=== PATIENT | female | born 1935 | race Caucasian/White ===

== ENCOUNTER 2018-10-11 07:47 | Day surgery (SDC) | payer OTHER ==
[~2018-10-11 07:47] MED LIST: CEREFOLIN CAPL1 EACH PO; CYMBALTA20 MG PO; FOLIC ACID1 MG PO; LIPITOR20 MG PO; NAMENDA5 MG PO; NEURO; PROTONIX20 MG PO; [UNRECOGNIZED DRUG - OTHER] PO
== END 2018-10-11 17:15 | disposition home or self-care (01) ==
LOC: CIR.AMB 07:47
DX: G57.72 Causalgia of left lower limb (principal)

== ENCOUNTER 2022-09-30 15:54 | Inpatient (IN) | payer OTHER ==
[~2022-09-30] VITALS: Ht 160 cm; Wt 72.6 kg
--- NOTE | 2022-09-30 16:01 | NUR ---
PTE ALERTA,ESTABLE Y ACOMPANADA DEL FAMILIAR CUAL REFIERE QUE DESDE ASHA COMENZO CON LA DEBILIDAD Y SIN APETITOS.
[2022-09-30] MEDS ORDERED: RAZADYNE ER16 MG (16:14)
[2022-09-30] MEDS ORDERED: VITAMINA B12 (16:15)
[2022-09-30] MEDS ORDERED: CYMBALTA20 MG (16:15)
[2022-09-30] MEDS ORDERED: FOLIC ACID1 MG (16:15)
[2022-09-30] MEDS ORDERED: NAMENDA XR28 MG (16:15)
[2022-09-30] MEDS ORDERED: LIPITOR40 M1 (16:15)
[2022-09-30] MEDS ORDERED: OSTERA TABLET1 EACH (16:15)
[2022-09-30] MEDS ORDERED: NEURONTIN300 MG (16:16)
[2022-09-30] MEDS ORDERED: INTEGRA F CAPS1 EACH (16:16)
[2022-09-30] MEDS ORDERED: TYLENOL ARTHRI650 MG (16:16)
[2022-09-30] MEDS ORDERED: PEPCID20 MG (16:16)
[2022-09-30] MEDS ORDERED: [UNRECOGNIZED DRUG - OTHER] (16:16)
[2022-09-30] MEDS ORDERED: ELIQUIS5 MG (16:16)
--- NOTE | 2022-09-30 17:57 | NUR ---
EVALUA PACIENTE SE ORIENTA SOBRE TRATAMIENTO MEDICO PACIENTE REFIRERE ENTENDER SE REALIZAN MUESTRAS DE LABORATORIO BAJO MEDIDAS ASPECTICAS SE COORDINA CT PACIENTE MANEJADA .
[2022-10-02] MEDS ORDERED: LATANOPROST2.5 ML (11:37)
== END 2022-10-07 18:04 | disposition home or self-care (01) | DRG 177 ==
LOC: ER 15:54 → MEDJ 23:01 → SURH 23:01 → MEDJ 10-01 14:41
PROVIDERS: ADMIT Specialist; ATTEND Specialist
PROC: B345ZZZ Ultrasonography of Bilateral Common Carotid Arteries (ICD-10-PCS; 2022-09-30)
PROC: B348ZZZ Ultrasonography of Bilateral Internal Carotid Arteries (ICD-10-PCS; 2022-09-30)
PROC: B020ZZZ Computerized Tomography (CT Scan) of Brain (ICD-10-PCS; 2022-09-30)
PROC: 8E0ZXY6 Isolation (ICD-10-PCS; principal; 2022-10-01)
PROC: XW033E5 Introduction of Remdesivir Anti-infective into Peripheral Vein, Percutaneous Approach, New Technology Group 5 (ICD-10-PCS; 2022-10-01)
PROC: 4A12X4Z Monitoring of Cardiac Electrical Activity, External Approach (ICD-10-PCS; 2022-10-01)
PROC: BB24YZZ Computerized Tomography (CT Scan) of Bilateral Lungs using Other Contrast (ICD-10-PCS; 2022-10-01)
PROC: B246ZZZ Ultrasonography of Right and Left Heart (ICD-10-PCS; 2022-10-01)
PROC: 3E0F7SF Introduction of Other Gas into Respiratory Tract, Via Natural or Artificial Opening (ICD-10-PCS; 2022-10-01)
PROC: 3E0F7GC Introduction of Other Therapeutic Substance into Respiratory Tract, Via Natural or Artificial Opening (ICD-10-PCS; 2022-10-01)
PROC: B030ZZZ Magnetic Resonance Imaging (MRI) of Brain (ICD-10-PCS; 2022-10-03)
DX: U07.1 COVID-19 (principal); G92.8 Other toxic encephalopathy; J12.82 Pneumonia due to coronavirus disease 2019; I50.33 Acute on chronic diastolic (congestive) heart failure; I21.A1 Myocardial infarction type 2; I48.20 Chronic atrial fibrillation, unspecified; I11.0 Hypertensive heart disease with heart failure; I35.0 Nonrheumatic aortic (valve) stenosis; G30.8 Other Alzheimer's disease; F02.80 Dementia in other diseases classified elsewhere, unspecified severity, without behavioral disturbance, psychotic disturbance, mood disturbance, and anxiety; R47.81 Slurred speech; R41.82 Altered mental status, unspecified; R19.7 Diarrhea, unspecified; Z79.01 Long term (current) use of anticoagulants
CPT/HCPCS: 70553

== ENCOUNTER 2022-10-22 14:21 | Emergency (ER) | payer OTHER ==
[~2022-10-22] VITALS: Ht 167.6 cm; Wt 81.6 kg
[~2022-10-22 14:21] MED LIST changes: +CYMBALTA20 MG; +ELIQUIS5 MG; +FOLIC ACID1 MG; +INTEGRA F CAPS1 EACH; +LATANOPROST2.5 ML; +LIPITOR40 M1; +NAMENDA XR28 MG; +NEURONTIN300 MG; +OSTERA TABLET1 EACH; +PEPCID20 MG; +RAZADYNE ER16 MG; +TYLENOL ARTHRI650 MG; +VITAMINA B12; +[UNRECOGNIZED DRUG - OTHER]
== END 2022-10-22 21:10 | disposition home or self-care (01) ==
LOC: ER 14:21
PROVIDERS: Emergency Medicine
DX: G30.8 Other Alzheimer's disease (principal); F02.80 Dementia in other diseases classified elsewhere, unspecified severity, without behavioral disturbance, psychotic disturbance, mood disturbance, and anxiety; Z91.041 Radiographic dye allergy status
CPT/HCPCS: 36415; 70450; 93005; 96365; 96366; 99284; J7030

== ENCOUNTER 2022-11-17 12:26 | Inpatient (IN) | payer OTHER ==
[~2022-11-17] VITALS: Ht 152.4 cm; Wt 68.0 kg
--- NOTE | 2022-11-17 12:49 | NUR ---
PACIENTE ALERTA Y ORIENTADA EN TIEMPO, LUGAR Y PERSONA EN AMBULANCIA LA MISMA VERBALIZA QUE SE REALIZO UN ESTUDIO DE MRI EN DONDE LE LLAMARON E INDICARON QUE PASARA POR YULI PEDRO DE EMERGENCIAS. AL MOMENTO PACIENTE PRESENTA MOLESTIA ABDOMINAL
[2022-11-17 14:43] LABS: PH,URINE 6.5 (5.0-8.0); URINE APPEARANCE Cloudy; URINE BILIRRUBIN Negative (NEGATIVE); URINE BLOOD Trace; URINE COLOR Yellow; URINE GLUCOSE Negative (NEGATIVE); URINE LEUKOCYTE Large; URINE NITRATE Positive; URINE PROTEIN Trace (NEGATIVE)
[2022-11-17 14:44] LABS: HEMATOCRIT 30.5 % (36.0-45.00); HEMOGLOBIN 9.9 g/dL (12.0-15.00); MEAN CELL VOLUME 92.7 fL (80.00-100.00); MEAN CORPUSCULAR HGB CONC 32.4 g/dl (32.0-36.0); PLATELET COUNT 347 K/uL (150-450); RED BLOOD COUNT 3.29 M/uL (4.00-6.00); RED CELL DISTRIBUTION WIDTH 16.2 % (11.5-14.5)
[2022-11-17 14:46] LABS: URINE BACTERIA 5977.1 uL (0.0-1933); URINE RBC 12.7 uL (0.0-20.8); URINE WBC 910.6 uL (0.0-23.2)
[2022-11-17 15:12] LABS: ALBUMIN 2.1 gm/dL (3.4-5.0); BILIRUBIN TOTAL 0.67 mg/dL (0.3-1.2); BILIRUBIN,CONJUGATED 0.23 mg/dL (0.0-0.2); BILIRUBIN,UNCONJUGATED 0.44 mg/dL (0.0-0.6); CALCIUM 8.8 mg/dL (8.5-10.1); CREATININE SERUM 0.63 mg/dL (0.55-1.02); GFR 89.81; POTASSIUM 3.31 mEq/L (3.5-5.1); TOTAL PROTEIN 6.9 gm/dL (6.4-8.2)
[2022-11-18 08:01] LABS: HEMATOCRIT 28.5 % (36.0-45.00); HEMOGLOBIN 9.5 g/dL (12.0-15.00); MEAN CELL VOLUME 92.7 fL (80.00-100.00); MEAN CORPUSCULAR HEMOGLOBIN 30.9 pg (27.00-32.0); MEAN CORPUSCULAR HGB CONC 33.3 g/dl (32.0-36.0); PLATELET COUNT 354 K/uL (150-450); RED BLOOD COUNT 3.08 M/uL (4.00-6.00); RED CELL DISTRIBUTION WIDTH 16.1 % (11.5-14.5)
[2022-11-18 08:04] LABS: INR 1.18; PROTHROMBIN TIME 12.2 SECONDS (9.0-11.5)
[2022-11-18 08:12] LABS: PARTIAL THROMBOPLASTIN TIME 45.6 SECONDS (22.0-34.0)
[2022-11-18 08:15] LABS: PH,URINE 6.5 (5.0-8.0); URINE APPEARANCE Clear; URINE BILIRRUBIN Negative (NEGATIVE); URINE BLOOD Small; URINE COLOR Yellow; URINE GLUCOSE Negative (NEGATIVE); URINE LEUKOCYTE Moderate; URINE NITRATE Negative; URINE PROTEIN 30 (NEGATIVE)
[2022-11-18 08:19] LABS: URINE EPITHELIAL CELLS 1.4 uL (0.0-38.8); URINE RBC 112.8 uL (0.0-20.8)
[2022-11-18 08:33] LABS: ALBUMIN 2.1 gm/dL (3.4-5.0); BILIRUBIN TOTAL 0.78 mg/dL (0.3-1.2); BILIRUBIN,CONJUGATED 0.26 mg/dL (0.0-0.2); BILIRUBIN,UNCONJUGATED 0.52 mg/dL (0.0-0.6); CALCIUM 8.2 mg/dL (8.5-10.1); CREATININE SERUM 0.6 mg/dL (0.55-1.02); GFR 95.01; GLOBULINA 3.8 G/DL (2.4-3.5); POTASSIUM 3.4 mEq/L (3.5-5.1); TOTAL PROTEIN 5.9 gm/dL (6.4-8.2)
[2022-11-18 08:39] LABS: C-REACTIVE PROTEIN 6.78 MG/DL (0.00-0.29)
[2022-11-18 09:03] LABS: ERYTHROCYTE SEDIMENTATION RATE 87 mm/hr
[2022-11-19 08:37] LABS: HEMATOCRIT 26.7 % (36.0-45.00); MEAN CELL VOLUME 91.4 fL (80.00-100.00); MEAN CORPUSCULAR HGB CONC 33.2 g/dl (32.0-36.0); PLATELET COUNT 327 K/uL (150-450); RED BLOOD COUNT 2.92 M/uL (4.00-6.00); RED CELL DISTRIBUTION WIDTH 16.2 % (11.5-14.5)
[2022-11-19 08:38] LABS: HEMOGLOBIN 8.8 g/dL (12.0-15.00); MEAN CORPUSCULAR HEMOGLOBIN 30.1 pg (27.00-32.0)
[2022-11-20 06:52] LABS: HEMOGLOBIN 9.4 g/dL (12.0-15.00); MEAN CELL VOLUME 91.7 fL (80.00-100.00); MEAN CORPUSCULAR HEMOGLOBIN 30.8 pg (27.00-32.0); MEAN CORPUSCULAR HGB CONC 33.6 g/dl (32.0-36.0); PLATELET COUNT 325 K/uL (150-450); RED BLOOD COUNT 3.05 M/uL (4.00-6.00); RED CELL DISTRIBUTION WIDTH 16.2 % (11.5-14.5)
[2022-11-20 07:23] LABS: CREATININE SERUM 0.53 mg/dL (0.55-1.02); GFR 109.64; MAGNESIUM 1.7 mg/dL (1.8-2.4); PHOSPHOROUS 2.1 mg/dL (2.5-4.9); POTASSIUM 3.33 mEq/L (3.5-5.1)
[2022-11-22 08:39] LABS: HEMATOCRIT 25.9 % (36.0-45.00); MEAN CELL VOLUME 91.4 fL (80.00-100.00); MEAN CORPUSCULAR HGB CONC 34.2 g/dl (32.0-36.0); PLATELET COUNT 335 K/uL (150-450); RED BLOOD COUNT 2.83 M/uL (4.00-6.00); RED CELL DISTRIBUTION WIDTH 16.5 % (11.5-14.5)
[2022-11-22 08:53] LABS: HEMOGLOBIN 8.8 g/dL (12.0-15.00)
[2022-11-22 09:18] LABS: ALBUMIN 1.8 gm/dL (3.4-5.0); BILIRUBIN TOTAL 0.36 mg/dL (0.3-1.2); CREATININE SERUM 0.51 mg/dL (0.55-1.02); GFR 114.61; GLOBULINA 3.3 G/DL (2.4-3.5); MAGNESIUM 1.9 mg/dL (1.8-2.4); POTASSIUM 3.72 mEq/L (3.5-5.1); TOTAL PROTEIN 5.1 gm/dL (6.4-8.2)
[2022-11-22 15:58] LABS: INR 1.19; PROTHROMBIN TIME 12.3 SECONDS (9.0-11.5)
[2022-11-22 16:01] LABS: PARTIAL THROMBOPLASTIN TIME 44.7 SECONDS (22.0-34.0)
[2022-11-23 08:24] LABS: HEMATOCRIT 28.8 % (36.0-45.00); HEMOGLOBIN 9.7 g/dL (12.0-15.00); MEAN CELL VOLUME 91.4 fL (80.00-100.00); MEAN CORPUSCULAR HEMOGLOBIN 30.7 pg (27.00-32.0); MEAN CORPUSCULAR HGB CONC 33.6 g/dl (32.0-36.0); PLATELET COUNT 374 K/uL (150-450); RED BLOOD COUNT 3.15 M/uL (4.00-6.00); RED CELL DISTRIBUTION WIDTH 16.8 % (11.5-14.5)
[2022-11-25 10:32] LABS: HEMATOCRIT 26.9 % (36.0-45.00); MEAN CELL VOLUME 91.9 fL (80.00-100.00); MEAN CORPUSCULAR HEMOGLOBIN 30.4 pg (27.00-32.0); MEAN CORPUSCULAR HGB CONC 33.2 g/dl (32.0-36.0); PLATELET COUNT 371 K/uL (150-450); RED BLOOD COUNT 2.92 M/uL (4.00-6.00); RED CELL DISTRIBUTION WIDTH 17.2 % (11.5-14.5)
[2022-11-25 10:33] LABS: HEMOGLOBIN 8.9 g/dL (12.0-15.00)
[2022-11-25 10:49] LABS: INR 1.07; PARTIAL THROMBOPLASTIN TIME 32.9 SECONDS (22.0-34.0); PROTHROMBIN TIME 11.2 SECONDS (9.0-11.5)
[2022-11-25 11:03] LABS: ALBUMIN 2.1 gm/dL (3.4-5.0); BILIRUBIN TOTAL 0.39 mg/dL (0.3-1.2); CALCIUM 8.2 mg/dL (8.5-10.1); CREATININE SERUM 0.53 mg/dL (0.55-1.02); GFR 109.64; GLOBULINA 3.3 G/DL (2.4-3.5); POTASSIUM 3.44 mEq/L (3.5-5.1); TOTAL PROTEIN 5.4 gm/dL (6.4-8.2)
[2022-11-25 15:35] LABS: ABG PH 7.455 (7.35-7.45); ABG PO2 140.7 mmHg (80-100); ABG pCO2 28.3 mmHg (35-45)
[2022-11-25 15:36] LABS: BICARBONATE 19.5 mmol/l (23-25); Tco2 20.3 mmol/l
[2022-11-25 15:37] LABS: o2 40 %
[2022-11-25 15:38] LABS: allen test SATISFACTORY; puncture site RADIAL LEFT
[2022-11-25 15:39] LABS: SaO2 99.3 %
[2022-11-28 22:07] LABS: ABG PH 7.494 (7.35-7.45); ABG PO2 96.5 mmHg (80-100); ABG pCO2 33.7 mmHg (35-45); BASE EXCESS 2.6 mmol/l; BICARBONATE 25.4 mmol/l (23-25); SaO2 98.1 %; Tco2 26.4 mmol/l
[2022-11-28 22:47] LABS: allen test SATISFACTORY; o2 32 %; puncture site RADIAL RIGHT
[2022-11-30 06:24] LABS: HEMATOCRIT 27.9 % (36.0-45.00); MEAN CELL VOLUME 92.6 fL (80.00-100.00); MEAN CORPUSCULAR HGB CONC 33.5 g/dl (32.0-36.0); PLATELET COUNT 167 K/uL (150-450); RED BLOOD COUNT 3.01 M/uL (4.00-6.00); RED CELL DISTRIBUTION WIDTH 18.2 % (11.5-14.5)
[2022-11-30 06:27] LABS: HEMOGLOBIN 9.4 g/dL (12.0-15.00); MEAN CORPUSCULAR HEMOGLOBIN 31.2 pg (27.00-32.0)
[2022-11-30 07:15] LABS: ALBUMIN 1.8 gm/dL (3.4-5.0); BILIRUBIN TOTAL 0.58 mg/dL (0.3-1.2); CREATININE SERUM 0.48 mg/dL (0.55-1.02); GFR 122.92; GLOBULINA 3.7 G/DL (2.4-3.5); TOTAL PROTEIN 5.5 gm/dL (6.4-8.2)
[2022-11-30 08:43] LABS: C-REACTIVE PROTEIN 17.8 MG/DL (0.00-0.29)
[2022-11-30 08:44] LABS: POTASSIUM 2.74 mEq/L (3.5-5.1)
[2022-12-03 16:13] LABS: ABG PH 7.521 (7.35-7.45); ABG PO2 189.6 mmHg (80-100); ABG pCO2 31.7 mmHg (35-45); BASE EXCESS 3.2 mmol/l; BICARBONATE 25.4 mmol/l (23-25); SaO2 99.8 %; Tco2 26.3 mmol/l; allen test SATISFACTORY; o2 100 %; puncture site RADIAL RIGHT
[2022-12-04 08:12] LABS: HEMOGLOBIN 9.3 g/dL (12.0-15.00); MEAN CORPUSCULAR HEMOGLOBIN 29.7 pg (27.00-32.0); RED BLOOD COUNT 3.12 M/uL (4.00-6.00); RED CELL DISTRIBUTION WIDTH 18.1 % (11.5-14.5)
[2022-12-04 08:37] LABS: ALBUMIN 1.9 gm/dL (3.4-5.0); BILIRUBIN TOTAL 0.72 mg/dL (0.3-1.2); CALCIUM 7.9 mg/dL (8.5-10.1); CREATININE SERUM 0.54 mg/dL (0.55-1.02); GFR 107.3; GLOBULINA 3.5 G/DL (2.4-3.5); TOTAL PROTEIN 5.4 gm/dL (6.4-8.2)
[2022-12-04 08:56] LABS: ERYTHROCYTE SEDIMENTATION RATE 103 mm/hr; PLATELET COUNT 143 K/uL (150-450)
[2022-12-04 09:50] LABS: C-REACTIVE PROTEIN 7.49 MG/DL (0.00-0.29)
[2022-12-04 09:51] LABS: POTASSIUM 2.48 mEq/L (3.5-5.1)
[2022-12-05 22:10] LABS: FECAL LEUKOCYTES NEGATIVE (NEGATIVE); ob NEGATIVE (NEGATIVE)
[2022-12-06 09:37] LABS: CALCIUM 8.5 mg/dL (8.5-10.1); CREATININE SERUM 0.51 mg/dL (0.55-1.02); GFR 114.61; MAGNESIUM 2.1 mg/dL (1.8-2.4); POTASSIUM 3.58 mEq/L (3.5-5.1)
[2022-12-06 09:47] LABS: PHOSPHOROUS 1.7 mg/dL (2.5-4.9)
[2022-12-06 16:07] LABS: ob NEGATIVE (NEGATIVE)
[2022-12-06 16:08] LABS: FECAL LEUKOCYTES NEGATIVE (NEGATIVE)
[2022-12-08 06:46] LABS: BILIRUBIN TOTAL 1.03 mg/dL (0.3-1.2); C-REACTIVE PROTEIN 2.12 MG/DL (0.00-0.29); CALCIUM 8.3 mg/dL (8.5-10.1); CREATININE SERUM 0.48 mg/dL (0.55-1.02); GFR 122.92; GLOBULINA 3.5 G/DL (2.4-3.5); PHOSPHOROUS 2.2 mg/dL (2.5-4.9); POTASSIUM 3.22 mEq/L (3.5-5.1); TOTAL PROTEIN 5.5 gm/dL (6.4-8.2)
[2022-12-08 07:04] LABS: HEMATOCRIT 32.8 % (36.0-45.00); HEMOGLOBIN 10.7 g/dL (12.0-15.00); MEAN CELL VOLUME 92.1 fL (80.00-100.00); MEAN CORPUSCULAR HGB CONC 32.6 g/dl (32.0-36.0); PLATELET COUNT 161 K/uL (150-450); RED BLOOD COUNT 3.56 M/uL (4.00-6.00); RED CELL DISTRIBUTION WIDTH 18.4 % (11.5-14.5)
[2022-12-12 08:12] LABS: HEMATOCRIT 30.7 % (36.0-45.00); HEMOGLOBIN 10.4 g/dL (12.0-15.00); MEAN CORPUSCULAR HEMOGLOBIN 31.2 pg (27.00-32.0); MEAN CORPUSCULAR HGB CONC 33.9 g/dl (32.0-36.0); PLATELET COUNT 157 K/uL (150-450); RED BLOOD COUNT 3.34 M/uL (4.00-6.00); RED CELL DISTRIBUTION WIDTH 18.6 % (11.5-14.5)
[2022-12-12 08:54] LABS: ALBUMIN 2.3 gm/dL (3.4-5.0); BILIRUBIN TOTAL 1.43 mg/dL (0.3-1.2); CALCIUM 8.6 mg/dL (8.5-10.1); CREATININE SERUM 0.52 mg/dL (0.55-1.02); GFR 112.07; GLOBULINA 3.3 G/DL (2.4-3.5); MAGNESIUM 2.2 mg/dL (1.8-2.4); PHOSPHOROUS 2.1 mg/dL (2.5-4.9); POTASSIUM 3.35 mEq/L (3.5-5.1); TOTAL PROTEIN 5.6 gm/dL (6.4-8.2)
[2022-12-12 14:57] LABS: URINE APPEARANCE Turbid; URINE BILIRRUBIN Negative (NEGATIVE); URINE BLOOD Large; URINE COLOR Orange; URINE GLUCOSE Negative (NEGATIVE); URINE LEUKOCYTE Moderate; URINE NITRATE Negative; URINE UROBILINOGEN 0.2 E.U./dl
[2022-12-12 15:00] LABS: URINE BACTERIA 808.9 uL (0.0-1933); URINE EPITHELIAL CELLS 22.8 uL (0.0-38.8); URINE RBC 3985.7 uL (0.0-20.8)
[2022-12-12 15:28] LABS: URINE PROTEIN 300 (NEGATIVE)
[2022-12-12 15:38] LABS: URINE CRYSTALS FEW /HPF
[2022-12-12 15:41] LABS: URINE YEAST NEGATIVE /hpf
[2022-12-14 09:53] LABS: ABG PH 7.466 (7.35-7.45); ABG PO2 73.6 mmHg (80-100); ABG pCO2 34.1 mmHg (35-45); BASE EXCESS 0.9 mmol/l; SaO2 95.6 %; Tco2 25.1 mmol/l; allen test SATISFACTORY; o2 21 %; puncture site RADIAL RIGHT
[2022-12-14 15:15] LABS: HEMATOCRIT 33.4 % (36.0-45.00); MEAN CELL VOLUME 92.2 fL (80.00-100.00); MEAN CORPUSCULAR HEMOGLOBIN 30.3 pg (27.00-32.0); MEAN CORPUSCULAR HGB CONC 32.9 g/dl (32.0-36.0); PLATELET COUNT 177 K/uL (150-450); RED BLOOD COUNT 3.63 M/uL (4.00-6.00); RED CELL DISTRIBUTION WIDTH 18.3 % (11.5-14.5)
[2022-12-14 15:36] LABS: ALBUMIN 2.4 gm/dL (3.4-5.0); BILIRUBIN TOTAL 1.15 mg/dL (0.3-1.2); CALCIUM 8.7 mg/dL (8.5-10.1); CREATININE SERUM 0.62 mg/dL (0.55-1.02); GFR 91.48; GLOBULINA 3.6 G/DL (2.4-3.5); POTASSIUM 3.99 mEq/L (3.5-5.1)
== END 2022-12-15 18:20 | disposition home or self-care (01) | DRG 393 ==
LOC: ER 12:26 → MEDJ 21:09
PROVIDERS: General Practice; Internal Medicine; Internal Medicine Critical Care Medicine; Internal Medicine Geriatric Medicine; Internal Medicine Infectious Disease; ADMIT Specialist; ATTEND Specialist
PROC: BW21YZZ Computerized Tomography (CT Scan) of Abdomen and Pelvis using Other Contrast (ICD-10-PCS; 2022-11-17)
PROC: 0D9P30Z Drainage of Rectum with Drainage Device, Percutaneous Approach (ICD-10-PCS; principal; 2022-11-20)
PROC: BW40ZZZ Ultrasonography of Abdomen (ICD-10-PCS; 2022-11-24)
PROC: BW21YZZ Computerized Tomography (CT Scan) of Abdomen and Pelvis using Other Contrast (ICD-10-PCS; 2022-11-25)
PROC: 4A12X4Z Monitoring of Cardiac Electrical Activity, External Approach (ICD-10-PCS; 2022-11-25)
PROC: B54MZZZ Ultrasonography of Right Upper Extremity Veins (ICD-10-PCS; 2022-11-27)
PROC: 02HV33Z Insertion of Infusion Device into Superior Vena Cava, Percutaneous Approach (ICD-10-PCS; 2022-11-29)
PROC: BW21ZZZ Computerized Tomography (CT Scan) of Abdomen and Pelvis (ICD-10-PCS; 2022-12-07)
DX: K61.1 Rectal abscess (principal); I49.01 Ventricular fibrillation; J69.0 Pneumonitis due to inhalation of food and vomit; F02.82 Dementia in other diseases classified elsewhere, unspecified severity, with psychotic disturbance; J90 Pleural effusion, not elsewhere classified; B37.49 Other urogenital candidiasis; B96.20 Unspecified Escherichia coli [E. coli] as the cause of diseases classified elsewhere; N73.9 Female pelvic inflammatory disease, unspecified; R19.00 Intra-abdominal and pelvic swelling, mass and lump, unspecified site; G30.9 Alzheimer's disease, unspecified; D64.9 Anemia, unspecified; I35.0 Nonrheumatic aortic (valve) stenosis; R06.02 Shortness of breath; I48.91 Unspecified atrial fibrillation; Y95 Nosocomial condition